=== PATIENT | male | born 1970 | race Two or more races ===

== ENCOUNTER 2017-06-15 03:17 | Emergency (ER) | payer OTHER ==
--- NOTE | 2017-06-15 03:59 | PDOC ---
History of Present Illness - General Chief Complaint: Pain, Acute Stated Complaint: ABDOMINAL PAIN Time Seen by Provider: 06/15/17 03:26 - History of Present Illness Initial Comments: 06/15/17 04:29 This 46-year-old man with a history of type I DM, ESRD (S/P renal transplant but currently on dialysis), HTN, [place] (09/23) and several month history of recurrent pancreatitis of unclear etiology presents with several hour history of abdominal pain and nausea consistent with his previous pancreatitis pain. The patient lives in [place], [place] but is visiting his daughter in the area. He had no vomiting or diarrhea associated with his pain and nausea today. Patient denies fever/chills. Patient had renal transplant 26/06; had [place] in September of this year and subsequent failure of his transplant. Since then, he is been on hemodialysis. He is due for his hemodialysis today at 3 PM([facility] schedule) Patient denies alcohol use; no history of gallstones with gallbladder removed several years ago. He had his first episode of acute pancreatitis approximately 6 months ago and has been hospitalized once; other times of acute pancreatitis he was medicated and discharged from from the emergency department . PMH As noted above Also has history of chronic back pain Nonsmoker Patient is a retired police cadet: [facility] Department Past History - Past Medical History Allergies/Adverse Reactions: Allergies Allergy/AdvReac Type Severity Reaction Status Date / Time ketamine Allergy Verified 06/15/17 03:42 Home Medications: Ambulatory Orders Amlodipine Besylate [Norvasc -] 10 mg PO DAILY 06/15/17 Apixaban [Eliquis] 5 mg PO BID 06/15/17 Clonidine HCl [Catapres -] 0.2 mg PO TID 06/15/17 Furosemide [Lasix] 80 mg PO DAILY 06/15/17 Hydralazine HCl [Apresoline -] 50 mg PO BID 06/15/17 Insulin (Levemir) [Levemir Flexpen -] 0 units SQ HS 06/15/17 Lisinopril 5 mg PO DAILY 06/15/17 Pantoprazole Sodium [Protonix] 40 mg PO DAILY 06/15/17 Review of Systems - Review of Systems Able to Perform ROS?: Yes Comments:: 12 point review of systems is negative except for what is noted in the history of present illness *Physical Exam - Physical Exam Comments: GENERAL: Adult male, in moderate distress secondary to abdominal pain/nausea HEAD: Normal with no signs of trauma. EYES: PERRLA, EOMI, sclera anicteric, conjunctiva clear. ENT: Ears normal, nares patent, oropharynx clear without exudates. Dry mucous membranes. NECK: Normal range of motion, supple without lymphadenopathy, JVD, or masses. LUNGS: Breath sounds equal, clear to auscultation bilaterally. No wheezes, and no crackles. HEART:Regular rate and rhythm, normal S1 and S2 without murmur, rub or gallop. ABDOMEN:.normal bowel sounds No guarding,tenderness or rebound.No masses No distention. EXTREMITIES: Normal range of motion, no edema. No clubbing or cyanosis. No erythema, or tenderness. NEUROLOGICAL: Cranial nerves II through XII grossly intact. Normal speech. No focal neurological deficits. MUSCULOSKELETAL: Back non-tender to palpation, no CVA tenderness SKIN: Warm, Dry, normal turgor, no rashes or lesions noted. 12-lead electrocardiogram is performed and shows normal sinus rhythm at 95 bpm; there is no acute ST or T-wave abnormalities. Turner, intervals are normal. No previous EKG tracings available ED Treatment Course - LABORATORY CBC & Chemistry Diagram: 06/15/17 04:30 06/15/17 04:30 Progress Note - Progress Note Progress Note: This 46-year-old man with multiple medical problems, on hemodialysis, and a history of recurrent pancreatitis presents with his usual abdominal pain consistent with pancreatitis. He has had mild nausea but no vomiting. Exam as noted above CBC/chemistry profile/lipase/cardiac enzymes sent. Patient states that during his acute episodes, Dilaudid/Zofran/Benadryl combination is most effective for his symptoms. Patient given Dilaudid 2 mg IV with Zofran 4 mg IV, Benadryl 25 mg IV. Patient requested additional 25 mg IV Benadryl since this is his usual dose. This was given. Patient not given any additional IV fluids because he has recently had fluid overload and he is due for his hemodialysis today Medical Decision Making - Medical Decision Making 06/15/17 06:40 Laboratory evaluation consistent with end-stage renal disease with anemia but no new problems. Lipase normal. Patient reports complete relief of pain after Dilaudid/Benadryl/Zofran. No further nausea/vomiting/pain. The patient wishes to be discharged to walk to his daughter's home which she states is close by. He refuses taxi transportation home. The patient has been advised strongly not to drive for several more hours.: Last dose of Dilaudid was 4:30 AM. He should not drive for 6 hours after this medication was given. He states that he will rest at his daughter's home until 1:[address] when he will drive or be driven to [place] for his dialysis treatment. *DC/Admit/Observation/Transfer Diagnosis at time of Disposition: End stage renal disease Abdominal pain Qualifiers: Abdominal location: generalized Qualified Code(s): R10.84 - Generalized abdominal pain - Discharge Dispostion Disposition: HOME Condition at time of disposition: Stable - Patient Instructions Printed Discharge Instructions: DI for Abdominal Pain-Adult Additional Instructions: DO NOT DRIVE FOR THE NEXT 4 HOURS Continue medications as prescribed Follow-up with dialysis today as scheduled Return to nearest ER if you have severe abdominal pain/nausea/vomiting Follow-up with your general doctor within 1 week
[2017-06-15] MEDS ORDERED: ONDANSETRON 4 MG/2 ML VIAL IVPUSH ONE (04:13)
[2017-06-15] MEDS ORDERED: HYDROmorphone HCL CARPU-JECT 2 MG/1 ML DISP.SYRIN IVPUSH ONE ×2 (04:13→05:09)
[2017-06-15] MEDS ORDERED: ONDANSETRON 4 MG/2 ML VIAL ONE (04:14)
[2017-06-15] MEDS ORDERED: HYDROmorphone HCL CARPU-JECT 2 MG/1 ML DISP.SYRIN ONE ×2 (04:14→05:12)
[2017-06-15 05:03] LABS: BASOPHIL 0.9 % (0-2.0); EOSINOPHIL 6.9 % (0-4.5); MCH 27.5 pg (25.7-33.7); MCHC 32.7 g/dl (32.0-35.9); MEAN CELL VOLUME 84.3 fl (80-96); MEAN PLT VOLUME 8.2 fl (7.5-11.1); NEUTROPHILS 68.8 % (42.8-82.8); PLATELET COUNT 357 K/MM3 (134-434); RDW 18.8 % (11.9-15.9)
[2017-06-15 05:04] VITALS: TEMP 97.4; BMI 34.5
[2017-06-15 05:25] LABS: INR 1.17 (0.82-1.09); PROTHROMBIN TIME (PATIENT) 12.9 SEC (9.98-11.88)
[2017-06-15 05:34] LABS: ANION GAP 11 (8-16); BILIRUBIN,TOTAL 0.5 mg/dL (0.2-1.0); CALCIUM 8.9 mg/dL (8.5-10.1); CO2 29 mmol/L (21-32); GLUCOSE,RANDOM 196 mg/dL (74-106); SGOT/AST 16 U/L (15-37); SGPT/ALT 14 U/L (12-78); TOT PROT 7.2 g/dl (6.4-8.2)
[2017-06-15 05:37] LABS: CREATININE 13.9 mg/dL (0.7-1.3)
[2017-06-15 05:40] LABS: ALK PHOS 128 U/L (45-117)
[2017-06-15 06:39] VITALS: BP 152/99; PULSE 92
--- NOTE | 2017-06-16 22:43 | EKG ---
Test Reason : Blood Pressure : / mmHG Vent. Rate : 095 BPM Atrial Rate : 095 BPM P-R Int : 166 ms QRS Dur : 088 ms QT Int : 394 ms P-R-T Axes : 039 022 106 degrees QTc Int : 495 ms NORMAL SINUS RHYTHM ATRIAL ABNORMALITY T WAVE ABNORMALITY, CONSIDER LATERAL ISCHEMIA ABNORMAL ECG NO PREVIOUS ECGS AVAILABLE REPEAT EKG IF CLINICALLY INDICATED NO CLINICAL INFORMATION IS AVAILABLE Confirmed by FLAKITA LONGORIA MD ([id number]) on 06/16/2017 10:43:00 PM Referred By: Confirmed By:FLAKITA LONGORIA MD
== END 2017-06-15 07:03 | disposition home or self-care (01) ==
LOC: FER 03:17
PROC: 3E033GC Introduction of Other Therapeutic Substance into Peripheral Vein, Percutaneous Approach (ICD-10-PCS; principal; 2017-06-15)
PROC: 3E033NZ Introduction of Analgesics, Hypnotics, Sedatives into Peripheral Vein, Percutaneous Approach (ICD-10-PCS; 2017-06-15)
DX: N18.6 End stage renal disease (principal); Z99.2 Dependence on renal dialysis; Z94.0 Kidney transplant status; I25.2 Old myocardial infarction; I12.0 Hypertensive chronic kidney disease with stage 5 chronic kidney disease or end stage renal disease
CPT/HCPCS: 36415; 80053; 83605; 83690; 85025; 85610; 93005; 96374; 96375; 96376; 99282-25

== ENCOUNTER 2017-06-16 15:45 | Emergency (ER) | payer OTHER ==
[2017-06-16 16:03] VITALS: TEMP 98.9; BMI 34.5
[2017-06-16] MEDS ORDERED: HYDROmorphone HCL CARPU-JECT 2 MG/1 ML DISP.SYRIN ONE ×2 (17:59→20:23)
[2017-06-16] MEDS ORDERED: HYDROmorphone HCL CARPU-JECT 2 MG/1 ML DISP.SYRIN IVPUSH ONE ×2 (18:11→20:16)
--- NOTE | 2017-06-16 18:14 | PDOC ---
History of Present Illness - General History Source: Patient (Diffuse abdominal pain and back pain. ) Exam Limitations: No Limitations <Michael Muniz - Last Filed: 06/16/17 18:29> - General History Source: Patient (The patient walked in complaining of abdominal pains, Second visit to this ER for similar complaint. While his weekly dyalisis is done in [place] he is visiting his daughter here and this is why he arrived to our ER. ) Exam Limitations: No Limitations - History of Present Illness Timing/Duration: unsure, getting worse Severity: moderate, severe Associated Symptoms: reports: malaise. 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 <Michael Muniz - Last Filed: 06/16/17 18:29> - Travel Traveled outside of the country in the last 30 days: No - Past Medical History Cardiac Disorders: Yes (CT 09/2016) Diabetes: Yes Disorders: Yes (DIALYSIS M/W/F) HTN: Yes - Surgical History Abdominal Surgery: Yes (KIDNEY TRANSPLANT, WHICH FURTHER REJECT.) - Suicide/Smoking/Psychosocial Hx Smoking History: Never smoked Have you smoked in the past 12 months: No Hx Alcohol Use: No Drug/Substance Use Hx: No Substance Use Type: None <Bassam Gomez - Last Filed: 06/19/17 12:58> - Past Medical History Allergies/Adverse Reactions: Allergies Allergy/AdvReac Type Severity Reaction Status Date / Time ketamine Allergy Verified 06/16/17 16:00 Home Medications: Ambulatory Orders Amlodipine Besylate [Norvasc -] 10 mg PO DAILY 06/15/17 Apixaban [Eliquis] 5 mg PO BID 06/15/17 Clonidine HCl [Catapres -] 0.2 mg PO TID 06/15/17 Furosemide [Lasix] 80 mg PO DAILY 06/15/17 Hydralazine HCl [Apresoline -] 50 mg PO BID 06/15/17 Insulin (Levemir) [Levemir Flexpen -] 0 units SQ HS 06/15/17 Lisinopril 5 mg PO DAILY 06/15/17 Pantoprazole Sodium [Protonix] 40 mg PO DAILY 06/15/17 Review of Systems - Review of Systems Able to Perform ROS?: Yes Respiratory: Yes: SOB with Exertion (Walking. ) ABD/GI: Yes: Other (Diffuse abdominal pain. ) <Michael Muniz - Last Filed: 06/16/17 18:29> - Review of Systems Able to Perform ROS?: Yes Is the patient limited Kuwaiti proficient: Yes Constitutional: Yes: Symptoms Reported, Malaise, Weakness HEENTM: No: Symptoms Reported, See HPI, Eye Pain, Blurred Vision, Tearing, Recent change in vision, Double Vision, Cataracts, Ear Pain, Ocular Prothesis, Ear Discharge, Nose Pain, Nose Congestion, Tinnitus, Nose Bleeding, Hearing Loss , Throat Pain, Throat Swelling, Mouth Pain, Dental Problems, Difficulty Swallowing, Mouth Swelling, Other Respiratory: No: Symptoms reported, See HPI, Cough, Orthopnea, Shortness of Breath, SOB with Exertion, SOB at Rest, Stridor, Wheezing, Productive cough, Hemoptysis, Other Cardiac (ROS): No: Symptoms Reported, See HPI, Chest Pain, Edema, Irregular Heart Rate, Lightheadedness, Palpitations, Syncope, Chest Tightness, Other ABD/GI: Yes: See HPI : Yes: See HPI Musculoskeletal: No: Symptoms Reported, See HPI, Back Pain, Gout, Joint Pain, Joint Swelling, Muscle Pain, Muscle Weakness, Neck Pain, Joint Stiffness, Other Integumentary: No: Symptoms Reported, See HPI, Bruising, Change in Color, Change in Hair/Nails, Dryness, Erythema, Flushing, Lesions, Lumps, Pallor, Pruritus, Rash, Sweating, Other Neurological: No: Symptoms reported, See HPI, Headache, Numbness, Paresthesia, Pre-Existing Deficit, Seizure, Tingling, Tremors, Weakness, Unsteady Gait, Ataxia, Dizziness, Other Psychiatric: No: Anxiety, Depression, Frequent Crying, Stressors, Sleep Pattern Change, Emotional Problems, Mood Swings, Change in Appetite, Other All Other Systems: Reviewed and Negative <Bassam Gomez - Last Filed: 06/19/17 12:58> *Physical Exam - Vital Signs Last Vital Signs Temp Pulse Resp BP Pulse Ox 98.9 F 98 H 16 178/103 100 06/16/17 15:46 06/16/17 15:46 06/16/17 15:46 06/16/17 15:46 06/16/17 15:46 - Physical Exam Cardiovascular: positive: Other (POrt catheter in right upper chest. ) Gastrointestinal/Abdominal: positive: Rebound, Tenderness (around abdominal area. ), Other (Severe Abdominal distress. ) <Michael Muniz - Last Filed: 06/16/17 18:29> - Vital Signs Last Vital Signs Temp Pulse Resp BP Pulse Ox 98.9 F 98 H 16 178/103 100 06/16/17 15:46 06/16/17 15:46 06/16/17 15:46 06/16/17 15:46 06/16/17 15:46 - Physical Exam General Appearance: Yes: Nourished, Appropriately Dressed, Moderate Distress, Obese HEENT: positive: ALINA Neck: positive: Trachea midline, Supple Respiratory/Chest: positive: Lungs Clear, Plerual Rub Cardiovascular: positive: Regular Rate Gastrointestinal/Abdominal: positive: Tender, Pulsatile Mass, Mass Lymphatic: negative: Adenopathy Musculoskeletal: positive: Normal Inspection Extremity: positive: Normal Capillary Refill, Pedal Edema Integumentary: positive: Normal Color, Dry, Warm Neurologic: positive: assembling inspector II-XII NML intact, Fully Oriented, Alert, Normal Mood/ Affect <Bassam Gomez S - Last Filed: 06/19/17 12:58> Heart Score/ECG Review - ECG Intrepretation Comment:: 06/16/17 18:29 Normal sinus rhythm. Abnormal QRS-T angle, consider primary T wave abnormality. Prolonged QT Abnormal ECG. <Michael Muniz - Last Filed: 06/16/17 18:29> ED Treatment Course - LABORATORY CBC & Chemistry Diagram: 06/16/17 18:00 06/16/17 18:00 <Michael Muinz - Last Filed: 06/16/17 18:29> - LABORATORY CBC & Chemistry Diagram: 06/16/17 18:00 06/16/17 18:00 <Bassam Gomez S - Last Filed: 06/19/17 12:58> Medical Decision Making - Medical Decision Making 06/16/17 18:21 Was in the ED 2 days ago and given pain medication before being discharged. <Michael Muniz - Last Filed: 06/16/17 18:29> - Critical Care Time Total Critical Care Time (minutes): 30 Critical Care Statement: The care of this patient involved high complexity decision making to prevent further life threatening deterioration of the patient 's condition and/or to evaluate & treat vital organ system(s) failure or risk of failure. - Medical Decision Making Patient seen immediately from arrival, lab tests ordered, previous chart reviewed, pain control achieved, CT scan abdomen & Pelvis ordered 06/19/17 12:56 <Bassam Gomez - Last Filed: 06/19/17 12:58> *DC/Admit/Observation/Transfer - Attestations Scribe Attestion: 06/16/17 18:21 Documentation prepared by Michael Muniz, acting as medical language specialist for Bassam Gomez MD/. <Michael Muniz - Last Filed: 06/16/17 18:29> - Discharge Dispostion Admit: No <Bassam Gomez - Last Filed: 06/19/17 12:58> Diagnosis at time of Disposition: End stage renal disease Abdominal pain Qualifiers: Abdominal location: generalized Qualified Code(s): R10.84 - Generalized abdominal pain - Discharge Dispostion Disposition: HOME Condition at time of disposition: Improved - Patient Instructions Printed Discharge Instructions: DI for Abdominal Pain-Adult Additional Instructions: Follow up with your plate slitter and inspector and tow feeder in [place], for further evaluation and care. Do not drive for next hours tonight
[2017-06-16 18:19] LABS: BASOPHIL 0.5 % (0-2.0); EOSINOPHIL 5.6 % (0-4.5); MCHC 33.1 g/dl (32.0-35.9); MEAN CELL VOLUME 84.6 fl (80-96); MEAN PLT VOLUME 8.3 fl (7.5-11.1); PLATELET COUNT 340 K/MM3 (134-434); RDW 18.4 % (11.9-15.9); WHITE BLOOD COUNT 5.8 K/mm3 (4.0-10.8)
[2017-06-16 18:37] LABS: ALBUMIN 3.3 g/dl (3.5-5.0); ALK PHOS 100 U/L (32-92); ANION GAP 13 (8-16); BILIRUBIN,TOTAL 0.7 mg/dl (0.2-1.0); CALCIUM 9.7 mg/dl (8.4-10.2); CO2 27 mmol/L (22-28); GLUCOSE,RANDOM 121 mg/dl (74-106); SGOT/AST 29 U/L (10-42); SGPT/ALT 15 U/L (10-40); TOT PROT 7.4 g/dl (6.4-8.3)
[2017-06-16 18:48] LABS: CREATININE 9.1 mg/dl (0.6-1.3)
[2017-06-16 20:32] VITALS: BP 176/100; PULSE 94
--- NOTE | 2017-06-18 08:59 | EKG ---
Test Reason : Blood Pressure : / mmHG Vent. Rate : 097 BPM Atrial Rate : 097 BPM P-R Int : 164 ms QRS Dur : 088 ms QT Int : 382 ms P-R-T Axes : 050 023 100 degrees QTc Int : 485 ms SINUS RHYTHM NONSPECIFIC T WAVE ABNORMALITY PROLONGED QT ABNORMAL ECG WHEN COMPARED WITH ECG OF 15-JUN-2017 05:20, NO SIGNIFICANT CHANGE WAS FOUND Confirmed by KEVIN STEVEN MD ([id number]) on 06/18/2017 8:58:52 AM Referred By: DR LEONARD Confirmed By:KEVIN STEVEN MD
== END 2017-06-16 20:37 | disposition home or self-care (01) ==
LOC: FER 15:45
PROC: 3E033NZ Introduction of Analgesics, Hypnotics, Sedatives into Peripheral Vein, Percutaneous Approach (ICD-10-PCS; principal; 2017-06-16)
PROC: 3E033GC Introduction of Other Therapeutic Substance into Peripheral Vein, Percutaneous Approach (ICD-10-PCS; 2017-06-16)
DX: R10.84 Generalized abdominal pain (principal); E11.9 Type 2 diabetes mellitus without complications; E11.22 Type 2 diabetes mellitus with diabetic chronic kidney disease; I12.0 Hypertensive chronic kidney disease with stage 5 chronic kidney disease or end stage renal disease; N18.6 End stage renal disease; Z99.2 Dependence on renal dialysis; I25.2 Old myocardial infarction
CPT/HCPCS: 36415; 74176-TC; 80053; 85025; 87040; 93005; 96374; 96375; 96376; 99283-25

== ENCOUNTER 2017-06-20 23:09 | Emergency (ER) | payer OTHER ==
--- NOTE | 2017-06-20 23:12 | PDOC ---
History of Present Illness - General Chief Complaint: Pain, Acute Stated Complaint: STOMACH/BACK PAIN Time Seen by Provider: 06/20/17 23:11 History Source: Patient Exam Limitations: No Limitations - History of Present Illness Initial Comments: 06/20/17 23:24 This is a 46-year-old male who comes in complaining of acute exacerbation of his back and abdominal pain. Patient said that the pain is chronic and that he takes Dilaudid for the pain. This is patient's third visit in 5 days. Patient lives in [facility] and comes all the way up here for narcotic medication. The last 2 times patient was here he was given IV Dilaudid a total of 8 mg. The patient stated that the only thing that works for his chronic pain is IV Dilaudid. The patient stated that he has to go to the ER every 2-3 days for IV Dilaudid. When I expressed that I was concerned about the amount of Dilaudid he was taking and I wanted to discuss with his pain specialist before I gave him any additional Dilaudid in the ER he said that his pain specialist told him he did not have a problem if the patient went to the ER and that the ER should give him whatever Dilaudid he asked for. I said I needed to contact his pain specialist and discuss with his pain specialist these instructions. At which point he told me that his pain specialist would not answer my call as he said his pain specialist told him that he should not have the ER doctor call him if it is late as the pain specialist does not answer calls from the ER doctor. I told the patient that I was uncomfortable giving him large doses of IV Dilaudid as he was already on large doses of oral Dilaudid. I offered to give patient alternatives such as Toradol or Tylenol which she refused. Patient then got up and walked out of the emergency room. Review of the patient's prescription drug history through the prescription drug monitoring program it should be noted that he received 90, 4 mg tablets of Dilaudid on May 28. PAST MEDICAL HISTORY: no significant history PAST SURGICAL HISTORY: no significant history FAMILY HISTORY: no pertinant history SOCIAL HISTORY: Pt lives with family and is employed. MEDICATIONS: reviewed ALLERGIES: As per nursing notes Review of Systems General: No fevers or chills, no weakness, no weight loss HEENT: No change in vision. No sore throat,. No ear pain CardioVascular: No chest pain or shortness of breath Respiratory:No cough, or wheezing. Gastrointestinal: no nausea, vomitting, diarrhea or constipation, No rectal bleeding Genitourinary: No dysuria, hematuria, or frequency Musculoskeletal: No joint or muscle pain or swelling Neurologic: No headache, vertigo, dizziness or loss of consciousness Psychiatric: nor depression Skin: No rashes or easy bruising Endocrine: no increased thirst or abnormal weight change Allergic: no skin or latex allergy All other systems reviewed and normal Exam: General: Well-nourished well-developed individual, in mild distress HEENT: Throat: Normal, tonsils normal, no erythema or exudate Neck: Supple, no meningeal signs, no lymphadenopathy Eyes::Pupils equal reactive and round, extraocular motion intact Chest: Nontender to palpation Cardiac: S1-S2 normal, regular rate and rhythm, no murmurs rubs or gallops Respiratory: Lungs clear to auscultation bilateral Abdomen: Soft, nondistended, normal bowel sounds, nontender to palpation diffusely Extremities: Warm, dry, no cyanosis, clubbing, or edema Skin: No rashes Neuro: Alert and oriented x3, nonfocal exam, grossly intact, normal gait Psych: Normal mood and affect Past History - Past Medical History Allergies/Adverse Reactions: Allergies Allergy/AdvReac Type Severity Reaction Status Date / Time ketamine Allergy Verified 06/16/17 16:00 Home Medications: Ambulatory Orders Amlodipine Besylate [Norvasc -] 10 mg PO DAILY 06/15/17 Apixaban [Eliquis] 5 mg PO BID 06/15/17 Clonidine HCl [Catapres -] 0.2 mg PO TID 06/15/17 Furosemide [Lasix] 80 mg PO DAILY 06/15/17 Hydralazine HCl [Apresoline -] 50 mg PO TID 06/15/17 Insulin (Levemir) [Levemir Flexpen -] 45 units SQ HS 06/15/17 Lisinopril 5 mg PO DAILY 06/15/17 Pantoprazole Sodium [Protonix] 40 mg PO DAILY 06/15/17 Hydromorphone [Dilaudid -] 4 mg PO Q4H PRN 06/20/17 Cardiac Disorders: Yes ([place] 09/2016) Diabetes: Yes Disorders: Yes (DIALYSIS M/W/F) HTN: Yes - Surgical History Abdominal Surgery: Yes (KIDNEY TRANSPLANT, WHICH FURTHER REJECT.) - Suicide/Smoking/Psychosocial Hx Smoking History: Never smoked Have you smoked in the past 12 months: No Hx Alcohol Use: No Drug/Substance Use Hx: No Substance Use Type: None *DC/Admit/Observation/Transfer Diagnosis at time of Disposition: Dependent drug abuse Chronic pain Qualifiers: Chronic pain type: other chronic pain Qualified Code(s): G89.29 - Other chronic pain; G89.29 - Other chronic pain - Discharge Dispostion Condition at time of disposition: Stable
[2017-06-20 23:19] VITALS: BP 176/107; PULSE 94; TEMP 98; BMI 34.5
== END 2017-06-20 23:53 | disposition left against medical advice (07) ==
LOC: FER 23:09
DX: I10 Essential (primary) hypertension (principal); E11.22 Type 2 diabetes mellitus with diabetic chronic kidney disease; Z99.2 Dependence on renal dialysis
CPT/HCPCS: 99281-25

== ENCOUNTER 2017-06-23 01:12 | Emergency (ER) | payer OTHER ==
[2017-06-23 01:42] VITALS: BP 166/92; PULSE 100; TEMP 98.7; BMI 34.9
--- NOTE | 2017-06-23 01:59 | PDOC ---
History of Present Illness - General History Source: Patient Exam Limitations: No Limitations - History of Present Illness Initial Comments: 06/23/17 02:43 The patient is a 46-year-old male with a significant past medical history of diabetes, kidney transplant failure (currently on dialysis MWF), MIs, and presents to the emergency department with acute exacerbation of his back pain and abdominal pain. Patient vomited 1x today reporting SOB on exertion and notes swelling in his legs for one month. This is the patients 4th visit here in 8 days for the same issue. Pt states that his pain is chronic and takes 4mg of Dilaudid daily for the pain as prescribed by his rug touch up painter in [place], [place] (Dr. Guy Pradhan). He states the rest of his doctors are at [facility] in [place]. Patient states that oral Dilaudid does not give him significant relief and is asking for IV Dilaudid. When I expressed concern about the large amount of Dilaudid he was taking and that I wanted to discuss this first with his rug touch up painter, patient stated that his pain management doctor told the patient that he would not answer calls at this time of night to speak to the ER doctor. I told the patient I was uncomfortable giving him the IV Dilaudid he wanted at this time without speaking to his doctor and offered him alternatives which he refused. Patient then got up and walked out of the ER. The patient denies chest pain, headache and dizziness. The patient denies fever , chills, diarrhea and constipation. The patient denies dysuria, frequency, urgency and hematuria. Allergies: ketamine Social History: Review of the patients prescription drug history through the prescription drug monitoring program it should be noted that he received 90, 4 mg tablets of Dilaudid on May 28. <Cierra Curry - Last Filed: 06/23/17 02:55> <Adriana Hyman - Last Filed: 06/23/17 02:59> - General Chief Complaint: Pain Stated Complaint: ABD/BACK PAIN,SOB Time Seen by Provider: 06/23/17 01:53 Past History <Cierra Curry - Last Filed: 06/23/17 02:55> - Past Medical History Cardiac Disorders: Yes (ID 09/2016) Diabetes: Yes Disorders: Yes (DIALYSIS M/W/F.. LUE) HTN: Yes - Surgical History Abdominal Surgery: Yes (KIDNEY TRANSPLANT, WHICH FURTHER REJECT.) - Suicide/Smoking/Psychosocial Hx Smoking History: Never smoked Have you smoked in the past 12 months: No Hx Alcohol Use: No Drug/Substance Use Hx: No Substance Use Type: None <Adriana Hyman - Last Filed: 06/23/17 02:59> - Past Medical History Allergies/Adverse Reactions: Allergies Allergy/AdvReac Type Severity Reaction Status Date / Time ketamine Allergy Verified 06/16/17 16:00 Home Medications: Ambulatory Orders Amlodipine Besylate [Norvasc -] 10 mg PO DAILY 06/15/17 Apixaban [Eliquis] 5 mg PO BID 06/15/17 Clonidine HCl [Catapres -] 0.2 mg PO TID 06/15/17 Furosemide [Lasix] 80 mg PO DAILY 06/15/17 Hydralazine HCl [Apresoline -] 50 mg PO TID 06/15/17 Insulin (Levemir) [Levemir Flexpen -] 45 units SQ HS 06/15/17 Lisinopril 5 mg PO DAILY 06/15/17 Pantoprazole Sodium [Protonix] 40 mg PO DAILY 06/15/17 Hydromorphone [Dilaudid -] 4 mg PO Q4H PRN 06/20/17 Review of Systems - Review of Systems Able to Perform ROS?: Yes Comments:: 06/23/17 02:43 GENERAL/CONSTITUTIONAL: No fever or chills. No weakness. HEAD, EYES, EARS, NOSE AND THROAT: No change in vision. No ear pain or discharge. No sore throat. CARDIOVASCULAR: No chest pain. RESPIRATORY: No cough, wheezing, or hemoptysis. GASTROINTESTINAL: (+) Abdominal pain. No diarrhea or constipation. GENITOURINARY: No dysuria, frequency, or change in urination. MUSCULOSKELETAL: (+) Back pain. No joint or muscle swelling or pain. No neck pain. SKIN: No rash NEUROLOGIC: No headache, vertigo, loss of consciousness, or change in strength/ sensation. ENDOCRINE: No increased thirst. No abnormal weight change. HEMATOLOGIC/LYMPHATIC: No anemia, easy bleeding, or history of blood clots. ALLERGIC/IMMUNOLOGIC: No hives or skin allergy. <Cierra Curry - Last Filed: 06/23/17 02:55> *Physical Exam - Vital Signs Last Vital Signs Temp Pulse Resp BP Pulse Ox 98.7 F 100 H 22 166/92 97 06/23/17 01:32 06/23/17 01:32 06/23/17 01:32 06/23/17 01:32 06/23/17 01:32 - Physical Exam Comments: 06/23/17 02:43 GENERAL: Awake, alert, and fully oriented HEAD: No signs of trauma EYES: PERRLA, EOMI, sclera anicteric, conjunctiva clear ENT: Auricles normal inspection, hearing grossly normal, nares patent, oropharynx clear without exudates. Moist mucosa NECK: Normal ROM, supple, no lymphadenopathy, JVD, or masses LUNGS: Breath sounds equal, clear to auscultation bilaterally. No wheezes, and no crackles HEART: Regular rate and rhythm, normal S1 and S2, no murmurs, rubs or gallops ABDOMEN: Soft, nontender, normoactive bowel sounds. No guarding, no rebound. No masses EXTREMITIES: (+) 1+ pitting edema of upper and lower extremities. (+) Fistula on the LUE. Normal range of motion. No clubbing or cyanosis. No cords, erythema , or tenderness NEUROLOGICAL: Cranial nerves II through XII grossly intact. Normal speech SKIN: Warm, Dry, normal turgor, no rashes or lesions noted. <Cierra Curry - Last Filed: 06/23/17 02:55> - Vital Signs Last Vital Signs Temp Pulse Resp BP Pulse Ox 98.7 F 100 H 22 166/92 97 06/23/17 01:32 06/23/17 01:32 06/23/17 01:32 06/23/17 01:32 06/23/17 01:32 <Adriana Hyman - Last Filed: 06/23/17 02:59> Medical Decision Making - Medical Decision Making 06/23/17 02:29 46yo male with sob, abd pain, back pain takes chronic po dilaudid has a pain management doc located in [place], [place] -> dr. Pradhan when you look up the phone number for dr. pradhan, the physician is located in [place], [place] Pt filled 90tabs of oral dilaudid 4mg on May 28 pt states he will not stay unless he receives IV dilaudid when it was discussed that I wished to speak with his pain management doctor the patient walked out of the ED. pt requested address for [facility] and walked out of the ED. 06/23/17 02:32 discussed with the patient the importance of doing an EKG, cxr, lab work. pt states he will not stay unless he gets IV dilaudid and benadryl. <Adriana Hyman - Last Filed: 06/23/17 02:59> *DC/Admit/Observation/Transfer - Attestations Scribe Attestion: 06/23/17 02:44 Documentation prepared by Cierra Curry, acting as biomedical instrument technician for Adriana Hyman DO. <Cierra Curry - Last Filed: 06/23/17 02:55> - Attestations Physician Attestion: 06/23/17 02:32 I, Dr. Adriana Hyman DO, attest that this document has been prepared under my direction and personally reviewed by me in its entirety. I further attest, that it accurately reflects all work, treatment, procedures and medical decision -making performed by me. <Adriana Hyman - Last Filed: 06/23/17 02:59> Diagnosis at time of Disposition: Chronic pain, Abdominal pain, End stage renal disease, Drug abuse and dependence, Shortness of breath - Discharge Dispostion Disposition: ELOPED Condition at time of disposition: Unchanged/Unknown - Patient Instructions Printed Discharge Instructions: DI for Chronic Pain -- Adult
== END 2017-06-23 02:36 | disposition left against medical advice (07) ==
LOC: JER 01:12
DX: R10.84 Generalized abdominal pain (principal); G89.29 Other chronic pain; F11.20 Opioid dependence, uncomplicated; I25.10 Atherosclerotic heart disease of native coronary artery without angina pectoris; I13.11 Hypertensive heart and chronic kidney disease without heart failure, with stage 5 chronic kidney disease, or end stage renal disease; N18.6 End stage renal disease; Z99.2 Dependence on renal dialysis; E11.9 Type 2 diabetes mellitus without complications; Z79.4 Long term (current) use of insulin
CPT/HCPCS: 99281-25

== ENCOUNTER 2017-06-23 14:35 | Emergency (ER) | payer OTHER ==
[2017-06-23 14:44] VITALS: BP 179/68; PULSE 97; TEMP 98.7; BMI 34.5
== END 2017-06-23 15:05 | disposition left against medical advice (07) ==
LOC: FER 14:35
DX: Z53.21 Procedure and treatment not carried out due to patient leaving prior to being seen by health care provider (principal)
CPT/HCPCS: 99282-25

== ENCOUNTER 2018-07-29 05:08 | Emergency (ER) | payer OTHER ==
[2018-07-29 05:20] VITALS: BP 149/100; PULSE 97; TEMP 98.7; BMI 68.8
--- NOTE | 2018-07-29 05:29 | PDOC ---
History of Present Illness - General Chief Complaint: Pain Stated Complaint: ABD PAIN Time Seen by Provider: 07/29/18 05:22 History Source: Patient Exam Limitations: No Limitations - History of Present Illness Initial Comments: 07/29/18 05:29 This is a 47-year-old male who has end-stage renal disease and comes in complaining of abdominal pain. Patient was at [facility] and when he was told that he would not be getting any narcotic medication he walked out. Here patient was offered nonnarcotic medication to initially try to manage his pain however he refused got up and walked out of the ED prior to my being able to examine him. Past History - Past Medical History Allergies/Adverse Reactions: Allergies Allergy/AdvReac Type Severity Reaction Status Date / Time ketamine Allergy Verified 06/16/17 16:00 Home Medications: Ambulatory Orders Amlodipine Besylate [Norvasc -] 10 mg PO DAILY 06/15/17 Apixaban [Eliquis] 5 mg PO BID 06/15/17 Furosemide [Lasix] 80 mg PO DAILY 06/15/17 Insulin (Levemir) [Levemir Flexpen -] 45 units SQ HS 06/15/17 Lisinopril 5 mg PO DAILY 06/15/17 Pantoprazole Sodium [Protonix] 40 mg PO DAILY 06/15/17 cloNIDine HCL [Catapres -] 0.2 mg PO TID 06/15/17 hydrALAZINE HCL [Apresoline -] 50 mg PO TID 06/15/17 HYDROmorphone [Dilaudid -] 4 mg PO Q4H PRN 06/20/17 Cardiac Disorders: Yes ([place] 09/2016) COPD: No Diabetes: Yes Disorders: Yes (DIALYSIS M/W/F.. LUE) HTN: Yes - Surgical History Abdominal Surgery: Yes (KIDNEY TRANSPLANT, WHICH FURTHER REJECT.) - Suicide/Smoking/Psychosocial Hx Smoking History: Unknown if ever smoked Have you smoked in the past 12 months: No Number of Cigarettes Smoked Daily: 0 Information on smoking cessation initiated: No Hx Alcohol Use: No Drug/Substance Use Hx: No Substance Use Type: None *Physical Exam - Vital Signs Last Vital Signs Temp Pulse Resp BP Pulse Ox 98.7 F 97 H 14 149/100 98 07/29/18 05:15 07/29/18 05:15 07/29/18 05:15 07/29/18 05:15 07/29/18 05:15 *DC/Admit/Observation/Transfer Diagnosis at time of Disposition: Drug abuse and dependence Abdominal pain Qualifiers: Abdominal location: generalized Qualified Code(s): R10.84 - Generalized abdominal pain - Discharge Dispostion Disposition: LEFT BEFORE MED EVAL, SHI RM Condition at time of disposition: Good - Referrals - Patient Instructions - Post Discharge Activity
== END 2018-07-29 05:40 | disposition left against medical advice (07) ==
LOC: FER 05:08
DX: R10.84 Generalized abdominal pain (principal); Z71.51 Drug abuse counseling and surveillance of drug abuser; F19.20 Other psychoactive substance dependence, uncomplicated
CPT/HCPCS: 99282-25